=== PATIENT | female | born 2000 | race Caucasian/White ===

== ENCOUNTER 2024-02-23 10:19 | Emergency (ER) | payer OTHER, SELFPAY ==
--- NOTE | ~2024-02-23 | XR_ITS ---
EXAMINATION: XR ribs RT 2V DATE: 02/23/2024 11:46 INDICATION: Right rib pain. Fall. TECHNIQUE: 2 views of the right ribs on 3 radiographs were obtained. COMPARISON: None. FINDINGS: There is no right-sided pneumonia, pleural effusion, or pneumothorax. The heart size is nor mal. IMPRESSION: 1. No rib fracture. Reviewed, dictated and finalized at location A. IMPRESSION: 1. No rib fracture.
[2024-02-23 10:27] VITALS: BP 124/68; PULSE 81; RESP 18; TEMP 36.3; O2SAT 100
--- NOTE | 2024-02-23 11:05 | ED.GENADULT ---
HPI - General Adult General Chief complaint: Unspecified Stated complaint: I hurt myself on a stripper pole yesterday Time Seen by Provider: 02/23/24 10:43 Source: patient Mode of arrival: ambulatory Limitations: no limitations History of Present Illness HPI narrative: Genny is a 23-year-old female patient presenting to the emergency room today with complaints of right-sided rib pain that occurred last night. She reports she was drunk and dancing on a strep pole and possibly injured her right ribs. She denies falling or any known injury however she does have bruise to the right ribs. Related Data Home Medications Medication Instructions Recorded Confirmed No Home Medications 09/09/21 09/09/21 Allergies Allergy/AdvReac Type Severity Reaction Status Date / Time No Known Allergies Allergy Verified 02/23/24 11:06 Review of Systems Review of Systems: Pertinent positives per HPI. Patient denies any fever, chills, rash, headache, visual changes, dizziness, cough, runny nose, sore throat, shortness of breath, chest pain, palpitations, nausea, vomiting, diarrhea, constipation, abdominal pain, or any urinary issues. 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 There is no relevant family history pertinent to the patient complaint. Exam Narrative: General: Well-developed, well nourished, in no apparent distress Head: Normocephalic, atraumatic. Chest wall: Faint bruise noted to the right lateral ribs just lateral to the breast, even rise and fall of the chest wall, no swelling noted Cardio: Regular rate and rhythm, s1 and s2 normal, no murmur appreciated. Resp: Clear to auscultation bilaterally, no rhonchi, rales, wheezing or rubs. Extremities: No deformity, no edema, no cyanosis, capillary refill less than 2 seconds, peripheral pulses palpable and strong. Integumentary: [place], warm, and dry, intact without lesion, no rashes. Course Course Emergency Course: Portions of this record may have been created with voice recognition software. Vital Signs Vital signs: Vital Signs Temperature 36.3 C L 02/23/24 10:27 Pulse Rate 81 02/23/24 10:27 Respiratory Rate 18 02/23/24 10:27 Blood Pressure 124/68 02/23/24 10:27 Pulse Oximetry 100 02/23/24 10:27 Temperature 36.3 C L 02/23/24 10:27 Pulse Rate 81 02/23/24 10:27 Respiratory Rate 18 02/23/24 10:27 Blood Pressure 124/68 02/23/24 10:27 Pulse Oximetry 100 02/23/24 10:27 Vital signs reviewed Medical Decision Making MDM Narrative Medical decision making narrative: At the time of visit patient is resting comfortably on the exam table. Patient appears to be nontoxic. Diagnostics: X-ray of the right ribs was performed and was negative for any sign of fracture or malalignment. Plan: I suspect patient has a right rib contusion.Supportive measures were discussed with the patient
== END 2024-02-23 12:23 | disposition home or self-care (01) ==
PROVIDERS: Emergency Provider Nurse Practitioner Family; PCP Emergency Medicine
DX: S20.211A Contusion of right front wall of thorax, initial encounter (principal); J45.909 Unspecified asthma, uncomplicated; F17.290 Nicotine dependence, other tobacco product, uncomplicated; X58.XXXA Exposure to other specified factors, initial encounter; Y93.41 Activity, dancing
CPT/HCPCS: 71100; 99283